=== PATIENT | female | born 1980 | race Caucasian/White ===

== ENCOUNTER 2018-11-20 09:01 | Emergency (ER) | payer MEDICAID ==
[2018-11-20] MEDS: KETOROLAC 60 MG INJ IM (09:38)
== END 2018-11-20 10:20 | disposition home or self-care (01) ==
LOC: FTE 09:01
DX: R51 Headache (principal); R07.89 Other chest pain; R40.2252 Coma scale, best verbal response, oriented, at arrival to emergency department; R40.2362 Coma scale, best motor response, obeys commands, at arrival to emergency department; R40.2142 Coma scale, eyes open, spontaneous, at arrival to emergency department
CPT/HCPCS: 71045; 81025; 93005; 96372; 99284-25